=== PATIENT | male | born 1970 | race African-American/Black ===

== ENCOUNTER → 2019-01-05 | Outpatient (CLI) | payer BC ==
--- NOTE | 2019-01-05 12:36 | KCIC ---
EXAM: Lumbar spine, 5 views. HISTORY: Pain. COMPARISON: None. FINDINGS: 5 views of the lumbar spine are obtained. There is no listhesis. The vertebral bodies are normal in height and the disc spaces are preserved. IMPRESSION: No acute osseous finding. Electronically signed by: Grace Guzman MD (01/05/2019 12:33 PM) [facility]
== END | disposition home or self-care (01) ==
LOC: KCIC 11:17
PROVIDERS: ATTEND Family Medicine
DX: M54.5 Low back pain (principal)
CPT/HCPCS: 72110

== ENCOUNTER → 2020-12-19 | Outpatient (CLI) | payer BC ==
--- NOTE | 2020-12-19 17:27 | KCIC ---
EXAM: Left knee, 3 views. HISTORY: Pain and swelling. COMPARISON: None. FINDINGS: 3 views of the left knee are obtained. There is no fracture, dislocation or subluxation. Th ere is a small left knee effusion. There is minimal enthesopathy along the superior patella and anter ior tibial tubercle. IMPRESSION: Small knee effusion. No acute osseous finding. Electronically signed by: Grace Guzman MD (12/19/2020 5:25 PM) [facility]
== END ==
LOC: KCIC 12:24
PROVIDERS: ATTEND Internal Medicine
DX: M25.462 Effusion, left knee (principal)
CPT/HCPCS: 73562